=== PATIENT | male | born 1990 | race African-American/Black ===

== ENCOUNTER 2019-09-07 17:55 | Inpatient (IN) | payer OTHER ==
[~2019-09-07] VITALS: Ht 152.4 cm; Wt 68.1 kg
[~2019-09-07 17:55] MED LIST: DIVA250T4; SERT25TA; TRAZ-182
--- NOTE | 2019-09-07 22:30 | NUR ---
RN NOTES PM SHIFT DIRECT ADMIT PATIENT FROM [facility]. PATIENT ALERT AND ORIENTED X4, COUGHING, ON 2LPM VIA NC, CHEST PAIN OF 4/10, NOT RELATED TO CARDIAC, PER TROPONIN LEVEL. PATIENT ADMITTED FOR GI BLEED AND PNA, PATIENT NOT VOMITING ON ADMISSION, ABLE TO TOLERATE FOOD, NO COMPLAIN OF ABDOMINAL PAIN, LAST BM HAS BLOODY STOOL 09/07/19. HX OF TRAUMATIC BRAIN INJURY, SEIZURE, NOT ON MEDICATION, BIPOLAR DISORDER, NO PO MEDS, PER PATIENT GETS MEDICATION VIA IM [id number], DOES NOT KNOW WHICH MEDICATION, ALCOHOL USE, PER PT LAST DRINK 2 DAYS AGO 09/05/19, DRINKS BEER, DENIES HARD LIQUOR, SMOKES 1 PACK PER DAY, PT UNABLE TO RECALL HOW LONG. DENIES NUMBNESS TO BLE, PALPABLE PEDAL, PULSES, REFUSED THOROUGH SKIN ASSESSMENT, CAN ONLY ASSESS SKIN NOT COVERED BY CLOTHING. INDEPENDENT WITH SELF CARE, AMBULATES, PT LIVES IN APARTMENT, DENIES BEING HOMELESS, ALSO REFUSED INVENTORY OF BELONGINGS. EDUCATED ON SMOKING POLICY.
[2019-09-07 22:38] VITALS: BP 125/84
[2019-09-07 22:50] VITALS: BP 130/71
[2019-09-07] MEDS ORDERED: IV NS 0.9% 1,000 ML IV PRN (23:26)
[2019-09-07] MEDS ORDERED: ACETAMINOPHEN 325 MG TABLET PO PRN (23:30)
[2019-09-07] MEDS ORDERED: ONDANSETRON HCL/PF 4 MG/2 ML VIAL IVP PRN (23:30)
[2019-09-07] MEDS ORDERED: CEFTRIAXONE 2 G in IV D5W 100 ML IV SCH (23:30)
[2019-09-07] MEDS ORDERED: ZOLPIDEM TARTRATE 5 MG TABLET PO PRN (23:30)
[2019-09-07] MEDS ORDERED: Z GUARD REMEDY 2 OZ OINT TP PRN (23:30)
[2019-09-07] MEDS ORDERED: HYDROCODONE/APAP 5/325MG 1 EACH TABLET PO PRN (23:30)
[2019-09-07] MEDS ORDERED: MAGNESIUM HYDROXIDE 30 ML UDC PO PRN (23:30)
[2019-09-07] MEDS ORDERED: BENZONATATE 100 MG CAPSULE PO PRN (23:30)
--- NOTE | 2019-09-08 00:02 | NUR ---
RN NOTES PM SHIFT CEFTRIAXONE 2 GM IV NOT GIVEN, PATIENT RECEIVED MEDICATION AT [facility], PER DIEGO LOMBARDO TO START 09/08/19
[2019-09-08] MEDS ORDERED: DOXYCYCLINE 100 MG VIAL ONE (00:13)
[2019-09-08] MEDS: DOXYCYCLINE 200 MG in IV D5W 250 ML IV SCH ×2 (00:47→09:11)
[2019-09-08] MEDS: ALBUTEROL FS 2.5 MG/0.5 ML VIAL.NEB NEB SCH ×3 (01:30→14:02)
[2019-09-08] MEDS: IPRATROPIUM NEB FS 0.5 MG/2.5 ML AMPUL.NEB NEB SCH ×3 (01:30→14:02)
[2019-09-08 06:31] LABS: BASOPHILS % (AUTO) 0.6 % (0.0-2.0); EOSINOPHILS % (AUTO) 0.5 % (0.0-6.0); HEMATOCRIT 43 % (39-51); HEMOGLOBIN 15.2 g/dL (13.5-17.5); LYMPHOCYTES # (AUTO) 0.9 /CMM (0.8-4.8); LYMPHOCYTES % (AUTO) 22.9 % (20.0-44.0); MEAN CORPUSCULAR HGB CONC 36 g/dl (31.0-36.0); MEAN CORPUSCULAR VOLUME 94 fL (80-96); MONOCYTES # (AUTO) 0.5 /CMM (0.1-1.30); MONOCYTES % (AUTO) 11.9 % (2.0-12.0); NEUTROPHILS # (AUTO) 2.6 /CMM (1.8-8.9); NEUTROPHILS % (AUTO) 64.1 % (43.0-81.0); PLATELET COUNT (AUTO) 153 /CMM (150-450); RED BLOOD CELL COUNT(AUTO) 4.56 MIL/uL (4.5-6.0); WHITE BLOOD COUNT (AUTO) 4.1 K/uL (4.3-11.0)
--- NOTE | 2019-09-08 06:37 | NUR ---
RN NOTES PATIENT ALERT AND ORIENTED X4, ON 2LPM VIA NC, NO COMPLAIN OF VOMITING, NO ABDOMINAL DISCOMFORT, ABLE TO TOLERATE FOOD, VOIDING SPONTANEOUSLY, AMBULATORY, INDEPENDENT WITH SELF CARE, HAS CHILDLIKE DEMEANOR, WITH HX OF BIPOLAR AND NO MEDICATIONS. GIVEN DOXYCYLINE IVPB, NS AT 75 ML/HR, NO BM DURING SHIFT
[2019-09-08 06:55] LABS: ALBUMIN 3.3 g/dL (3.4-5.0); BILIRUBIN,TOTAL 0.3 mg/dL (0.2-1.0); CALCIUM, SERUM 8.5 mg/dL (8.5-10.1); CREATININE 0.8 mg/dL (0.6-1.3); MAGNESIUM 2.1 mg/dL (1.8-2.4); PHOSPHORUS 4.5 mg/dL (2.5-4.9); POTASSIUM 3.5 mmol/L (3.5-5.1); TOTAL PROTEIN, SERUM 6.7 g/dL (6.4-8.2)
[2019-09-08 07:09] LABS: THYROID STIMULATING HORMONE 2.39 uIU/mL (0.358-3.74)
[2019-09-08] MEDS ORDERED: PANTOPRAZOLE 40 MG TABLET.DR PO SCH (07:30)
--- NOTE | 2019-09-08 07:34 | NUR ---
MS RN OPENING NOTES: RECEIVED PATIENT ASLEEP IN BED, EASILY AWAKENS. A/OX 4. ABLE TO MAKE NEEDS KNOWN, DENIES PAIN OR ANY DISCOMFORTS AT THIS TIME. ON 02 VIA N/C @ 2LPM, TOLERATING WELL WITH NO SOB NOTED. IV ACCESS ON RFA G#20 INTACT AND PATENT, IVF OF NS @75ML/HR INFUSING WELL, NO S/S OF INFILTRATIONS NOTED. SAFETY MEASURES IN PLACE: BED IS IN LOW AND LOCKED POSITION WITH SIDE RAILS UP X2. CALL LIGHT WITH IN EASY REACH. WILL CONTINUE TO MONITOR PATIENT ACCORDINGLY.
[2019-09-08] MEDS ORDERED: CEFTRIAXONE 2 G in IV D5W 100 ML IV SCH ×2 (07:38→21:00)
[2019-09-08 08:00] VITALS: BP 148/75
[2019-09-08] MEDS ORDERED: [UNRECOGNIZED DRUG - REMARK] IJ (08:37)
[2019-09-08 13:14] LABS: OCCULT BLOOD STOOL NEGATIVE (NEGATIVE)
[2019-09-08 13:40] LABS: BASOPHILS % (AUTO) 0.9 % (0.0-2.0); EOSINOPHILS % (AUTO) 1.6 % (0.0-6.0); HEMATOCRIT 44 % (39-51); HEMOGLOBIN 15.3 g/dL (13.5-17.5); LYMPHOCYTES # (AUTO) 1.7 /CMM (0.8-4.8); LYMPHOCYTES % (AUTO) 49.5 % (20.0-44.0); MEAN CORPUSCULAR HGB CONC 35 g/dl (31.0-36.0); MEAN CORPUSCULAR VOLUME 94 fL (80-96); MONOCYTES # (AUTO) 0.5 /CMM (0.1-1.30); MONOCYTES % (AUTO) 14.8 % (2.0-12.0); NEUTROPHILS # (AUTO) 1.2 /CMM (1.8-8.9); NEUTROPHILS % (AUTO) 33.2 % (43.0-81.0); PLATELET COUNT (AUTO) 164 /CMM (150-450); RED BLOOD CELL COUNT(AUTO) 4.63 MIL/uL (4.5-6.0); WHITE BLOOD COUNT (AUTO) 3.5 K/uL (4.3-11.0)
[2019-09-08] MEDS ORDERED: KEY,NONCONTROL,TO KEEP IN PYXI 1 EA MC ONE (18:14)
--- NOTE | 2019-09-08 18:35 | NUR ---
RN DISCHARGED NOTES PT DISCHARGED HOME IN STABLE CONDITION. A/O4,SAME ABLE TO MAKE NEEDS KNOWN. NO ACUTE DISTRESS NOTED THROUGHOUT THE DAY. V/S TAKEN AND RECORDED. SKIN IS INTACT. PT EDUCATED ON ALCOHOL AND SMOKING CESSATION. DISCHARGED INSTRUCTIONS GIVEN TO PT AND MOTHER, BOTH VERBALIZED UNDERSTANDING. PT LEFT UNIT AMBULATORY ACCOMPANIED BY MOTHER JP @ [id number]. AND CHARGE NURSE AWRE OF DISCHARGE.
== END 2019-09-08 18:32 | disposition home or self-care (01) | DRG 241 ==
LOC: MED 22:12
PROVIDERS: ADMIT Nurse Practitioner Acute Care; ATTEND Nurse Practitioner Acute Care
DX: K27.9 Peptic ulcer, site unspecified, unspecified as acute or chronic, without hemorrhage or perforation (principal); R56.9 Unspecified convulsions; F10.10 Alcohol abuse, uncomplicated; F31.9 Bipolar disorder, unspecified; Y90.9 Presence of alcohol in blood, level not specified; F17.200 Nicotine dependence, unspecified, uncomplicated; K29.70 Gastritis, unspecified, without bleeding; Z87.820 Personal history of traumatic brain injury; Z83.3 Family history of diabetes mellitus; Z82.49 Family history of ischemic heart disease and other diseases of the circulatory system; J45.909 Unspecified asthma, uncomplicated; J98.11 Atelectasis
CPT/HCPCS: 36415; 80053-TC; 80061-TC; 82272-TC; 83540-TC; 83735-TC; 84100-TC; 84443-TC; 85025-TC; 87081-TC; G0378; J0696; J3490; J7030; J7060

== ENCOUNTER 2019-09-20 18:18 | Emergency (ER) | payer OTHER ==
[~2019-09-20] VITALS: Ht 172.7 cm; Wt 69.4 kg
[~2019-09-20 18:18] MED LIST changes: -DIVA250T4; -SERT25TA; -TRAZ-182; +[UNRECOGNIZED DRUG - REMARK] IJ
--- NOTE | 2019-09-20 18:45 | NUR ---
PT AAOX4. AMBULATORY WITH STEADY GAIT. PT C/O COUGH X 1 WEEK. DIFFICULTY BREATHING X TODAY. PT PLACED ON MONITOR SAT 96 ON ROOM AIR. PER MOTHER PT HAD COLLPASED LUNG 2 WEEKS AGO. MD AT BEDSIDE. AWAITING MD FOR EVLA. WILL CONTINUE TO MONITOR.
[2019-09-20] MEDS ORDERED: methylPREDNISolone SOD SUCC 125 MG/2ML VIAL IV ONE (19:00)
[2019-09-20] MEDS ORDERED: IPRATROPIUM NEB FS 0.5 MG/2.5 ML AMPUL.NEB NEB ONE (19:00)
[2019-09-20] MEDS ORDERED: PANTOPRAZOLE 40 MG VIAL IV ONE (19:00)
[2019-09-20] MEDS ORDERED: ALBUTEROL FS 2.5 MG/3 ML VIAL.NEB CONTNEB ONE (19:00)
[2019-09-20] MEDS ORDERED: IV NS 0.9% 1,000 ML BAG IV ONE (19:00)
--- NOTE | 2019-09-20 19:00 | NUR ---
LABS COLLECTED AND SENT TO LAB
[2019-09-20] MEDS ORDERED: methylPREDNISolone SOD SUCC 125 MG/2ML VIAL ONE (19:05)
[2019-09-20] MEDS ORDERED: PANTOPRAZOLE 40 MG VIAL ONE (19:05)
[2019-09-20 19:13] LABS: BASOPHILS # (AUTO) 0.1 /CMM (0.0-0.2); BASOPHILS % (AUTO) 0.8 % (0.0-2.0); EOSINOPHILS % (AUTO) 0.6 % (0.0-6.0); HEMATOCRIT 47 % (39-51); HEMOGLOBIN 16.3 g/dL (13.5-17.5); LYMPHOCYTES # (AUTO) 3.2 /CMM (0.8-4.8); LYMPHOCYTES % (AUTO) 45.5 % (20.0-44.0); MEAN CORPUSCULAR HGB CONC 35 g/dl (31.0-36.0); MEAN CORPUSCULAR VOLUME 95 fL (80-96); MONOCYTES # (AUTO) 0.3 /CMM (0.1-1.30); MONOCYTES % (AUTO) 4.5 % (2.0-12.0); NEUTROPHILS # (AUTO) 3.4 /CMM (1.8-8.9); NEUTROPHILS % (AUTO) 48.6 % (43.0-81.0); PLATELET COUNT (AUTO) 297 /CMM (150-450)
[2019-09-20 19:24] LABS: ALBUMIN 4.2 g/dL (3.4-5.0); BILIRUBIN,DIRECT 0.1 mg/dL (0.0-0.2); BILIRUBIN,TOTAL 0.5 mg/dL (0.2-1.0); CALCIUM, SERUM 9.4 mg/dL (8.5-10.1); CREATININE 0.8 mg/dL (0.6-1.3); POTASSIUM 3.5 mmol/L (3.5-5.1); TOTAL PROTEIN, SERUM 7.6 g/dL (6.4-8.2)
[2019-09-20] MEDS ORDERED: IPRATROPIUM NEB FS 0.5 MG/2.5 ML AMPUL.NEB ONE (19:33)
[2019-09-20] MEDS ORDERED: ALBUTEROL FS 2.5 MG/3 ML VIAL.NEB ONE (19:33)
--- NOTE | 2019-09-20 19:35 | NUR ---
RT AT BEDSIDE
--- NOTE | 2019-09-20 19:45 | NUR ---
PT RECIEVING BREATHING TREATMENT
--- NOTE | 2019-09-20 21:29 | NUR ---
Patient discharged to home in stable condition. Written and verbal after care instructions given. Patient verbalizes understanding of instruction and RX. Pt's mother called to pick him up. IV removed. Catheter intact and site benign. Pressure and 4x4 applied to site. No bleeding noted. Pt ambulated to waiting room with steady gait. VSS.
[2019-09-20 21:30] VITALS: BP 126/74
== END 2019-09-20 21:30 | disposition home or self-care (01) ==
LOC: ER 18:20
DX: J45.909 Unspecified asthma, uncomplicated (principal); G40.909 Epilepsy, unspecified, not intractable, without status epilepticus; F17.200 Nicotine dependence, unspecified, uncomplicated; Z98.890 Other specified postprocedural states
CPT/HCPCS: 36415; 71045; 80048; 80076; 83690; 85025; 94644; 96374; 96375; 99285; C9113; J2930; J7030